=== PATIENT | male | born 1975 | race Two or more races ===

== ENCOUNTER 2017-04-19 14:46 | Emergency (ER) | payer OTHER ==
[~2017-04-19] VITALS: Ht 167.6 cm; Wt 89.8 kg
--- NOTE | 2017-04-19 15:36 | PHYS DOC ---
Adult General Chief Complaint Chief Complaint: MECHANICAL FALL HPI HPI Patient is a 42 year old M who presents with right ankle pain and lower back pain status post fall on Wednesday. Patient is Swedish-speaking individual and was interviewed through a manager audit. Patient states he was at work on Wednesday and fell off an 8 foot ladder twisting his right ankle. Patient states he did not go to the hospital at time. Patient denies any loss of consciousness or hitting his head. Patient stated he had swelling and pain to his right ankle and was able to walk around with a cam boot that his brother had provided him. Patient came the emergency room today for increased pain of the right ankle and swelling along with lower back pain. Patient denies any other injuries. Patient has no other complaints. Pertinent exam findings: Minimal swelling with tenderness to palpation of the lateral malleolus of the right ankle, +2 dorsal pedis pulse on the right ankle with a cap refill less than 2 seconds, no proximal fibular tenderness palpation No midline tenderness to the L-spine, mild paraspinous tenderness to the L-spine ED course: Patient was seen and examined in the emergency room via manager audit x-rays of the L-spine, pelvis, right ankle were ordered 1645: Patient was reexamined and updated on x-ray results and the plan to discharge home with follow-up with PCP in one to 2 days. Recommended patient to rest, elevate, compress, ice his right ankle and to keep using a cam boot as needed. Pertinent results: X-ray of the right ankle unremarkable for an obvious fracture X-ray L-spine no obvious fracture MDM: After reviewing the chart, CC/HPI/PMH, physical exam, [radiological results], I do not believe the patient sustained a significant traumatic injury warranting further workup and/or admission at this time. Patient stable to be discharged home. Recommended short-term follow-up with PCP in one to 2 days. Recommended [id number] treatment for his pain and swelling. Additional verbal discharge instructions were provided to the patient and that if symptoms get worse or any new symptoms arise that are worrisome to the patient he is to return to the emergency room immediately Review of Systems Review of Systems GEN: Denies fevers, chills, sweats HEENT: Denies blurred vision, sore throat CV: Denies chest pain RESP: Denies shortness of air, cough GI: Denies n/v/d NEURO: Denies confusion, dizziness MSK: Right ankle pain Allergies Allergies Allergies Coded Allergies Type Severity Reaction Last Updated Verified No Known Drug Allergies 04/19/17 No Physical Exam Physical Exam GEN.: No apparent distress. Alert and oriented. HEENT: Head is normocephalic, atraumatic NECK: Supple. LUNGS: CTAB. HEART: RRR, S1, S2 present. Peripheral pulses intact ABDOMEN: Soft, nontender. Positive bowel sounds. EXTREMITIES: Without any cyanosis. Minimal swelling with tenderness to palpation of the lateral malleolus of the right ankle, +2 dorsal pedis pulse on the right ankle with a cap refill less than 2 seconds, no proximal fibular tenderness palpation NEUROLOGIC: Normal speech, normal tone PSYCHIATRIC: Normal affect, normal mood. SKIN: No ulcerations Back: No midline tenderness over the L-spine, mild paraspinous tenderness over the L-spine Current Patient Data Vital Signs Vital Signs Date Time Temp Pulse Resp B/P (MAP) Pulse Ox O2 Delivery O2 Flow Rate FiO2 04/19/17 15:20 98.4 68 20 154/70 (98) 97 Room Air 98.4 EKG EKG [] Radiology/Procedures Radiology/Procedures X-ray of the right ankle unremarkable for an obvious fracture X-ray L-spine no obvious fracture[] Course & Med Decision Making Course & Med Decision Making Pertinent Labs and Imaging studies reviewed. (See chart for details) [] Dragon Disclaimer Dragon Disclaimer This electronic medical record was generated, in whole or in part, using a voice recognition dictation system. Departure Departure Impression: Primary Impression: Right ankle sprain Additional Impression: Lower back pain Disposition: 01 HOME, SELF-CARE Condition: IMPROVED Patient Instructions: Ankle Sprain Additional Instructions: Please follow up with her family doctor next one to 2 days Problem Qualifiers Primary Impression: Right ankle sprain Encounter type: initial encounter Involved ligament of ankle: unspecified ligament Qualified Codes: S93.401A - Sprain of unspecified ligament of right ankle, initial encounter Additional Impression: Lower back pain Chronicity: acute Back pain laterality: unspecified Sciatica presence: without sciatica Qualified Codes: M54.5 - Low back pain MADELINE GARZA DO Apr 19, 2017 15:36
--- NOTE | 2017-04-19 16:07 | RAD ---
Right ankle, 3 views, 04/19/2017: History: Fall, pain No fracture or dislocation is identified. There is mild soft tissue swelling. IMPRESSION: No acute bony abnormality is detected.
--- NOTE | 2017-04-19 16:10 | RAD ---
Lumbar spine, 3 views, 04/19/2017: History: Fall The lumbar vertebral heights are well-maintained. The intervertebral disc spaces are well preserved. There are mild scattered marginal spurs. A small lucency related to the right transverse process at L1 demonstrates sclerotic margins and is probably old. No acute fracture or dislocation is identified. The paraspinous soft tissues are unremarkable. IMPRESSION: 1. Mild degenerative change. 2. No acute bony abnormality is detected. AP pelvis, 04/19/2017: History: Fall, pain No fracture is identified. There is mild narrowing of the hip joints. The periarticular soft tissues are unremarkable. IMPRESSION: No acute abnormality is detected.
[2017-04-19 16:53] VITALS: BP 123/65
== END 2017-04-19 17:26 | disposition home or self-care (01) ==
LOC: ER 14:46
DX: S93.401A Sprain of unspecified ligament of right ankle, initial encounter (principal); M54.5 Low back pain; W11.XXXA Fall on and from ladder, initial encounter; Y93.89 Activity, other specified; Y92.69 Other specified industrial and construction area as the place of occurrence of the external cause; Y99.8 Other external cause status
CPT/HCPCS: 72100; 72170; 73610; 99284